=== PATIENT | male | born 1940 | race African-American/Black ===

== ENCOUNTER 2019-12-25 21:17 | Emergency (ER) | payer OTHER, BC ==
[~2019-12-25] VITALS: Ht 172.7 cm; Wt 74.8 kg
[~2019-12-25 21:17] MED LIST: ALDACTONE25 MG PO; ALLOPURINOL 30300 M1 PO; AMLODIPINE BESY10 MG PO; ASPIRIN EC81 M1 PO; AUGMENTIN 875875 MG PO; BAKING SODA PO; CALCITRIOL0.25 MCG PO; CARVEDILOL25 MG PO; CRESTOR20 MG PO; DEMADEX20 MG PO; DOXYCYCLINE 10100 M1 PO; FLONASE 0.05%50 MCG NASAL; FOSRENOL1000 MG PO; IPRAT-ALBUT 0.5-3 ML IH; LIPITOR 20 MG T20 M1 PO; MUCINEX TA600 MG/TA1 PO; NEPHROCAPS SOFT1 CAP PO; NEURONTIN 300300 M1 PO; OMEPRAZOLE20 M2 PO; PREDNISONE 10 M10 MG PO; SENSIPAR90 MG PO; SODIUM BICARBONATE
[2019-12-25 22:24] LABS: ABSOLUTE NEUTROPHILS 11.2 thou/uL (1.4-8.2); BASOPHILS 0.7 % (0.0-2.0); EOSINOPHILS 0.5 % (0.0-3.0); HEMATOCRIT 53.7 % (42.0-52.0); HEMOGLOBIN 17.5 gm/dL (14.0-18.0); LYMPHOCYTES 7.2 % (24.0-44.0); MCH 31.8 pg (26.0-34.0); MCHC 32.6 g/dL (28.0-37.0); MCV 97.7 fL (80.0-100.0); MONOCYTES 6.1 % (1.0-8.0); PLATELET COUNT 222 thou/uL (150-400); POLYS 85.5 % (36.0-66.0); RDW 17.8 % (10.5-14.5); WBC 13.1 thou/uL (4.0-11.0)
[2019-12-25 22:30] LABS: ANION GAP 6 mmol/L (7-16); BUN 24 mg/dL (7-18); CALCIUM 9.2 mg/dL (8.5-10.1); CHLORIDE 96 mmol/L (98-107); CO2 37 mmol/L (21-32); CREATININE 6.8 mg/dL (0.7-1.3); GLUCOSE 114 mg/dL (74-106); POTASSIUM 3.6 mmol/L (3.5-5.1); SODIUM 139 mmol/L (136-145)
[2019-12-25 22:40] LABS: ALBUMIN 3.8 g/dL (3.4-5.0); SGOT 32 U/L (15-37); SGPT 32 U/L (30-65); TOTAL BILIRUBIN 0.8 mg/dL (<0.1-1.0); TROPONIN-I <0.06 ng/mL (<0.06)
[2019-12-25] MEDS ORDERED: ZOFRAN ODT4 MG PO (23:56)
[2019-12-26 00:05] VITALS: BP 105/78
--- NOTE | 2019-12-26 11:55 | EKG ---
[facility] [place] [address] ELECTROCARDIOGRAM REPORT Name: VEDA OLVERA Room #: DEP [facility].#: [id number] Admission: 12/25/19 Attend Phys: Discharge: 12/26/19 Date of : 38 Report #: [id number] THIS REPORT FOR: cc: Didier Geiger MD, Kirk D. MD Couchonnal, Luis F. MD ~ THIS REPORT FOR: //name// [facility] ED Test Date: 2019-12-25 Test Time: 21:59:59 Pat Name: VEDA OLVERA Department: Room: Gender: Therapist Radiation: [facility] : 1940 Requested By: Omar Parra Order Number: [id number] MD: Kang Banuelos Measurements Intervals [place] Rate: 90 P: 20 IA: 175 QRS: 8 QRSD: 93 T: 91 QT: 439 QTc: 538 Interpretive Statements Atrial-paced complexes Ventricular bigeminy Anterior infarct, old Compared to ECG 01/25/2016 11:44:19 Electronically Signed On 12-26-2019 11:53:37 CDT by Kang Banuelos [email or web address] <ELECTRONICALLY SIGNED> By: Kang Banuelos MD 12/26/19 [id number] Kang Banuelos MD /EPI
== END 2019-12-26 00:05 | disposition home or self-care (01) ==
LOC: ER 21:17
PROVIDERS: Emergency Medicine
DX: R42 Dizziness and giddiness (principal); R68.83 Chills (without fever); E78.00 Pure hypercholesterolemia, unspecified; I13.2 Hypertensive heart and chronic kidney disease with heart failure and with stage 5 chronic kidney disease, or end stage renal disease; N18.6 End stage renal disease; F17.210 Nicotine dependence, cigarettes, uncomplicated; Z99.2 Dependence on renal dialysis; Z79.899 Other long term (current) drug therapy; Z79.82 Long term (current) use of aspirin

== ENCOUNTER 2021-08-25 19:37 | Emergency (ER) | payer OTHER, BC ==
[~2021-08-25] VITALS: Ht 172.7 cm; Wt 68.0 kg
[~2021-08-25 19:37] MED LIST changes: +ZOFRAN ODT4 MG PO
[2021-08-25 19:48] VITALS: BP 113/59
[2021-08-25] MEDS ORDERED: PROAIR HFA8.5 GM INH (20:59)
[2021-08-25] MEDS ORDERED: TESSALON PERLE100 MG PO (20:59)
== END 2021-08-25 23:24 | disposition home or self-care (01) ==
LOC: ER 19:37
DX: J06.9 Acute upper respiratory infection, unspecified (principal); Z20.822 Contact with and (suspected) exposure to COVID-19; I12.0 Hypertensive chronic kidney disease with stage 5 chronic kidney disease or end stage renal disease; N18.6 End stage renal disease; F17.210 Nicotine dependence, cigarettes, uncomplicated; Z99.2 Dependence on renal dialysis; Z79.82 Long term (current) use of aspirin; Z79.891 Long term (current) use of opiate analgesic; Z79.899 Other long term (current) drug therapy